=== PATIENT | female | born 1945 | race Caucasian/White ===

== ENCOUNTER 2016-12-30 16:22 | Observation (INO) | payer OTHER ==
[~2016-12-30] VITALS: Ht 152.4 cm; Wt 50.1 kg
[~2016-12-30 16:22] MED LIST: ACETAMINOPHEN500 MG PO; ACID CONTROL150 MG PO; ACID REDUCER 1150 MG PO; ALBUTEROL1 GM MC; ALBUTEROL17 G1 IH; ARICEPT10 MG PO; ARICEPT5 MG PO; ARTHROTEC 501 TABLET PO; ARTIFICIAL TEAR15 M3 BOTH EYES; ASMANEX TW200 MICROG IH; ASMANEX0.24 G1 IH; ATIVAN0.5 MG PO; ATORVASTATIN CA10 MG PO; CIPRO250 MG PO; CLARITIN10 MG PO; COLACE100 MG PO; COMBIVENT200 INHALA IH; COUMADIN,JANTOVE1 MG PO; COUMADIN,JANTOVE2 MG PO; COUMADIN,JANTOVE4 MG PO; COUMADIN2 MG PO; COUMADIN2.5 MG PO; COUMADIN3 MG PO; COUMADIN4 MG PO; Colace PO; DOCUSATE SODIU100 MG PO; DONEPEZIL HCL10 MG PO; DONEPEZIL HCL5 MG PO; DULERA 200 MCG/13 GM IH; DUONEB 2.5-0.5 M3 ML IH; ENDOCET 5-3251 EACH PO; FERROUS SULFAT325 MG PO; FLEET ENEMA-AD118 ML PR; FLONASE16 G1 BOTH NARES; Feosol PO; GABAPENTIN100 MG PO; GENASAL NS; GLIPIZIDE ER2.5 M1 PO; GLIPIZIDE5 MG PO; GLUCOPHAGE500 MG PO; GLUCOTROL XL2.5 MG PO; GLUCOTROL5 MG PO; GLUTOSE 1537.5 GM SL; Glucotrol PO; HYDROCODON-ACE1 EAC7 PO; JANTOVEN4 MG PO; K-Dur PO; KLOR-CON M2020 MEQ PO; LASIX40 MG PO; LEVAQUIN500 MG PO; LIDOCAINE700 MG TD; LIDODERM 5% P1 PATCH TD; LIDODERM 5% P1 PATCH TP; LORAZEPAM0.5 MG PO; LOVENOX80 MG/0.8 SC; Levaquin PO; METFORMIN HCL500 MG PO; METHOCARBAMOL500 MG PO; NEURONTIN100 MG PO; NEURONTIN300 MG PO; NIACIN 500 MG1 EACH PO; NIACIN500 M1 PO; NIASPAN,SLO-NI500 MG PO; NORCO 5/3251 TABLET PO; Niacin PO; OMEPRAZOLE20 MG PO; Ocean Nasal 0.65% BOTH NARES; PANTOPRAZOLE SO40 MG PO; PERCOCET 5/31 TABLET PO; PHILLIPS'400 MG/5 M PO; POTASSIUM CL 225 MEQ PO; PREDNISONE10 MG PO; PRILOSEC20 MG PO; PROAIR HFA8.5 GM IH; PROTONIX40 MG PO; PROVENTIL,2.5 MG/0.5 IH; PROVENTIL,2.5 MG/3 M IH; PYRIDOXINE HCL100 MG PO; PYRIDOXINE,VITA50 MG PO; Percocet 5/325,Endoc PO; Proventil,Ventolin H IH; QUETIAPINE FUM100 MG PO; Robaxin PO; SALINE NASAL SP45 ML BOTH NARES; SENNA PLUS TAB1 EACH PO; SENNA8.6 MG PO; SENOKOT S,PE1 TABLET PO; SEROQUEL100 MG PO; SEROQUEL200 MG PO; SEROQUEL50 MG PO; SERTRALINE HCL25 MG PO; SPIRIVA1 INHALATI IH; SYMBICORT60 INHALAT IH; SYSTANE 0.3-0.1 EACH BOTH EYES; TRAMADOL HCL50 MG PO; TYLENOL REGULA325 MG PO; TYLENOL325 M1 PO; Tylenol Regular Stre PO; VICODIN ES 71 TABLET PO; VICODIN,LORT1 TABLET PO; VITAMIN B-6100 MG PO; VITAMIN B-650 MG PO; VITAMIN D-3 401 EACH PO; VITAMIN D3 1,01 EACH PO; WELLBUTRIN XL150 MG PO; WELLBUTRIN XL300 MG PO; Wellbutrin XL PO; XARELTO15 MG PO; XARELTO20 MG PO; ZITHROMAX Z-PA250 MG PO; ZOCOR20 MG PO; ZOFRAN ODT4 MG PO; ZOLOFT50 MG PO; Zocor PO; predniSONE PO
[2016-12-30 17:19] LABS: BASOPHIL COUNT 0.1 K/uL (0-0.1); EOSINOPHIL (%) 0.9 % (0-5); EOSINOPHIL COUNT 0.1 K/uL (0-0.3); HEMATOCRIT 37.4 % (36.0-46.0); IMMATURE GRANULOCYTE (%) 0.2 % (0.0-0.7); LYMPHOCYTE COUNT 2.3 K/uL (1.0-2.8); MCH 31.5 PG (29.0-34.0); MCHC 33.2 G/DL (30.0-36.0); MCV 94.9 FL (83-99); MEAN PLAT.VOLUME 11.1 uM^3 (9.5-12.4); MONOCYTE (%) 7.7 % (3-12); MONOCYTE COUNT 0.6 K/uL (0-0.8); NEUTROPHIL (%) 62.4 % (45-76); PLATELET COUNT 176 K/uL (156-360); RBC DIS.WIDTH-CV 12.4 % (11.8-14.6); RBC DIS.WIDTH-SD 43.5 % (39-53); RED BLOOD COUNT 3.94 M/uL (3.80-5.20); WHITE BLOOD COUNT 8.1 K/uL (4.1-10.2)
[2016-12-30 17:25] LABS: INTER. NORMALIZED RATIO 1.1; PROTHROMBIN TIME 12.6 SEC (10.2-12.9)
[2016-12-30 17:28] LABS: CHLORIDE 104 mEq/L (99-109); POTASSIUM 3.6 mEq/L (3.7-5.4); PTT 29.8 SEC (25-37); SODIUM 140 mEq/L (136-147)
[2016-12-30 17:30] LABS: GLUCOSE 102 mg/dL (70-99)
[2016-12-30 17:31] LABS: ANION GAP 10 MEQ/L (2-14)
[2016-12-30 17:33] LABS: GFR ESTIMATE (CALCULATED) > 59 mL/min/
[2016-12-30 17:34] LABS: UREA NITROGEN (BUN) 8 mg/dL (9-23)
[2016-12-30 17:40] LABS: TROP-I INTERPRETATION NEGATIVE; TROPONIN-I < 0.01 ng/mL (0.0-0.30)
[2016-12-30 20:02] LABS: SERUM ETHYL ALCOHOL < 10 mg/dL
[2016-12-30 20:14] LABS: TOTAL BILIRUBIN 0.6 mg/dL (0.0-1.0)
[2016-12-30 20:15] LABS: ALKALINE PHOSPHATASE 111 IU/L (3-129)
[2016-12-30 20:18] LABS: DIRECT BILIRUBIN 0.3 mg/dL (0.0-0.3)
[2016-12-30 20:50] VITALS: BP 159/71
[2016-12-30 23:36] VITALS: BP 170/67
[2016-12-31 00:53] LABS: POINT-OF-CARE METER ID UU14162513
[2016-12-31 01:03] LABS: TROP-I INTERPRETATION NEGATIVE; TROPONIN-I < 0.01 ng/mL (0.0-0.30)
[2016-12-31 03:25] VITALS: BP 164/69
[2016-12-31 03:25] LABS: ADD MIUA? NO; BILIRUBIN NEGATIVE; BLOOD NEGATIVE; COLOR YELLOW ((YELLOW)); GLUCOSE (STRIP) NEGATIVE; KETONES NEGATIVE; LEUKOCYTES NEGATIVE; NITRITE NEGATIVE; PROTEIN (STRIP) NEGATIVE; SPECIFIC GRAVITY 1.009 (1.000-1.030); UCUL ADDED? NO; UROBILINOGEN 0.2 MG/DL (0.2-1.0)
[2016-12-31 03:35] LABS: AMPHETAMINES QUANT VALUE 0 NG/ML; BARBITUATES QUANT VALUE 0 NG/ML; BENZODIAZEPINES QUANT VALUE 0 NG/ML; BENZODIAZEPINES, URINE SCREEN Negative (200 ng/mL); MARIJUANA QUANT VALUE 0 NG/ML; OPIATES QUANTITATIVE VALUE 0 NG/ML; PHENCYCLIDINE QUANT VALUE 0 NG/ML
[2016-12-31 05:29] LABS: POINT-OF-CARE METER ID UU14162513
[2016-12-31 05:39] LABS: ALKALINE PHOSPHATASE 90 IU/L (3-129); ANION GAP 7 MEQ/L (2-14); CHLORIDE 110 MEQ/L (99-109); GFR ESTIMATE (CALCULATED) > 59 mL/min/; GLUCOSE 94 mg/dL (70-99); MAGNESIUM 1.8 mg/dl (1.3-2.7); SAMPLE HEMOLYSIS CHECK 0; SAMPLE ICTERIC CHECK 0; SAMPLE LIPEMIA CHECK 0; SODIUM 143 MEQ/L (136-147); TOTAL BILIRUBIN 0.7 MG/DL (0.0-1.0); UREA NITROGEN (BUN) 10 mg/dL (9-23)
[2016-12-31 05:41] LABS: TROP-I INTERPRETATION NEGATIVE; TROPONIN-I < 0.01 ng/mL (0.0-0.30)
[2016-12-31 05:43] LABS: POTASSIUM 4.5 MEQ/L (3.7-5.4)
[2016-12-31 06:54] LABS: Estimated Average Glucose 114 mg/dL (70-123); HEMOGLOBIN A1c (GLYCOHEMOGLOB) 5.6 % HGB (Below 5.7)
[2016-12-31 09:41] VITALS: BP 151/67
[2016-12-31 11:29] VITALS: BP 148/67
[2016-12-31 12:18] LABS: POINT-OF-CARE METER ID UU14162513
== END 2016-12-31 14:00 | disposition home or self-care (01) ==
LOC: EME 16:22 → EDOF 19:14 → ENRESERV 19:19 → 5WEST 20:32 → ENPENDDIS 12-31 → 5WEST 12-31 14:00
PROVIDERS: Emergency Medicine; Internal Medicine; Physician Assistant Medical
DX: R11.2 Nausea with vomiting, unspecified (principal); R19.7 Diarrhea, unspecified; R00.1 Bradycardia, unspecified; R07.89 Other chest pain; R10.9 Unspecified abdominal pain; I25.10 Atherosclerotic heart disease of native coronary artery without angina pectoris; Z86.718 Personal history of other venous thrombosis and embolism; Z86.711 Personal history of pulmonary embolism; G40.909 Epilepsy, unspecified, not intractable, without status epilepticus; Z95.5 Presence of coronary angioplasty implant and graft; I11.0 Hypertensive heart disease with heart failure; I50.9 Heart failure, unspecified; E11.9 Type 2 diabetes mellitus without complications; Z79.01 Long term (current) use of anticoagulants; E78.5 Hyperlipidemia, unspecified; F25.0 Schizoaffective disorder, bipolar type; F03.90 Unspecified dementia, unspecified severity, without behavioral disturbance, psychotic disturbance, mood disturbance, and anxiety; E55.9 Vitamin D deficiency, unspecified; Z85.72 Personal history of non-Hodgkin lymphomas; J44.9 Chronic obstructive pulmonary disease, unspecified; G89.4 Chronic pain syndrome; F17.210 Nicotine dependence, cigarettes, uncomplicated; Z88.2 Allergy status to sulfonamides; Z96.652 Presence of left artificial knee joint; Z90.49 Acquired absence of other specified parts of digestive tract; Z88.0 Allergy status to penicillin; Z88.5 Allergy status to narcotic agent; Z88.1 Allergy status to other antibiotic agents; Z88.6 Allergy status to analgesic agent; Z88.8 Allergy status to other drugs, medicaments and biological substances; Z79.891 Long term (current) use of opiate analgesic
CPT/HCPCS: 71010; 74176; 80048; 80053; 80076; 80306 90; 81003; 82948; 83036; 83735; 84484; 85025; 85610; 85730; 87493; 93005; 99202; 99281; 99285; G0378; G0480; J1650; J3480; J7030; S0028

== ENCOUNTER 2017-01-05 16:42 | Emergency (ER) | payer OTHER ==
[~2017-01-05] VITALS: Ht 152.4 cm; Wt 48.8 kg
[2017-01-05 17:35] LABS: ADD MIUA? YES; BILIRUBIN SMALL; BLOOD NEGATIVE; COLOR AMBER ((YELLOW)); GLUCOSE (STRIP) NEGATIVE; KETONES 20; LEUKOCYTES TRACE; NITRITE NEGATIVE; PROTEIN (STRIP) NEGATIVE; SPECIFIC GRAVITY 1.027 (1.000-1.030)
[2017-01-05 17:56] LABS: HEMATOCRIT 37.6 % (36.0-46.0); MCH 31.4 PG (29.0-34.0); MCHC 33.5 G/DL (30.0-36.0); MCV 93.8 FL (83-99); MEAN PLAT.VOLUME 11.8 uM^3 (9.5-12.4); PLATELET COUNT 177 K/uL (156-360); RBC DIS.WIDTH-CV 12.5 % (11.8-14.6); RBC DIS.WIDTH-SD 43.2 % (39-53); RED BLOOD COUNT 4.01 M/uL (3.80-5.20); WHITE BLOOD COUNT 7.8 K/uL (4.1-10.2)
[2017-01-05 17:59] LABS: BACTERIA RARE /HPF; EPITHELIAL CELLS RARE /HPF; MUCUS TRACE /LPF; RED BLOOD CELLS 0-5 /HPF (0-5); UCUL ADDED? NO; WHITE BLOOD CELLS 0-5 /HPF (0-5)
[2017-01-05 18:07] LABS: CHLORIDE 106 mEq/L (99-109); POTASSIUM 4.1 mEq/L (3.7-5.4); SODIUM 143 mEq/L (136-147)
[2017-01-05 18:09] LABS: GLUCOSE 111 mg/dL (70-99)
[2017-01-05 18:11] LABS: ANION GAP 13 MEQ/L (2-14)
[2017-01-05 18:13] LABS: GFR ESTIMATE (CALCULATED) > 59 mL/min/
[2017-01-05 18:14] LABS: UREA NITROGEN (BUN) 18 mg/dL (9-23)
[2017-01-05 18:47] LABS: INTER. NORMALIZED RATIO 1.2; PROTHROMBIN TIME 13.6 SEC (10.2-12.9)
[2017-01-05 18:56] LABS: TOTAL BILIRUBIN 0.7 mg/dL (0.0-1.0)
[2017-01-05 18:57] LABS: ALKALINE PHOSPHATASE 123 IU/L (3-129)
[2017-01-05 18:59] LABS: DIRECT BILIRUBIN 0.3 mg/dL (0.0-0.3)
[2017-01-05 19:00] LABS: LIPASE 7 U/L (1.0-51.0)
[2017-01-05 19:01] LABS: TROP-I INTERPRETATION NEGATIVE; TROPONIN-I 0.01 ng/mL (0.0-0.30)
[2017-01-05] MEDS ORDERED: KEFLEX500 MG PO (20:17)
[2017-01-05 21:03] VITALS: BP 117/81
== END 2017-01-05 20:19 | disposition home or self-care (01) ==
LOC: EME 16:42
PROVIDERS: Emergency Medicine
DX: N39.0 Urinary tract infection, site not specified (principal); R19.7 Diarrhea, unspecified; R07.9 Chest pain, unspecified; Z86.711 Personal history of pulmonary embolism; Z86.718 Personal history of other venous thrombosis and embolism; Z95.1 Presence of aortocoronary bypass graft; Z87.891 Personal history of nicotine dependence
CPT/HCPCS: 80048; 80076; 81003; 83605; 83690; 84484; 85027; 85610; 85730; 99281; 99284

== ENCOUNTER 2017-06-15 13:40 | Emergency (ER) | payer OTHER ==
[~2017-06-15] VITALS: Ht 152.4 cm; Wt 52.3 kg
[~2017-06-15 13:40] MED LIST changes: +KEFLEX500 MG PO
[2017-06-15 15:22] LABS: BASOPHIL (%) 1.2 % (0-1); BASOPHIL COUNT 0.1 K/uL (0-0.1); EOSINOPHIL (%) 0.8 % (0-5); EOSINOPHIL COUNT 0.1 K/uL (0-0.3); HEMATOCRIT 35.5 % (36.0-46.0); IMMATURE GRANULOCYTE (%) 0.2 % (0.0-0.7); LYMPHOCYTE (%) 33.8 % (15-42); MCHC 33.8 G/DL (30.0-36.0); MCV 94.7 FL (83-99); MONOCYTE (%) 8.4 % (3-12); MONOCYTE COUNT 0.5 K/uL (0-0.8); NEUTROPHIL (%) 55.6 % (45-76); NEUTROPHIL COUNT 3.4 K/uL (1.8-6.4); PLATELET COUNT 179 K/uL (156-360); RBC DIS.WIDTH-CV 12.2 % (11.8-14.6); RBC DIS.WIDTH-SD 42.6 % (39-53); RED BLOOD COUNT 3.75 M/uL (3.80-5.20)
[2017-06-15 15:31] LABS: CHLORIDE 106 mEq/L (99-109); SODIUM 141 mEq/L (136-147)
[2017-06-15 15:33] LABS: GLUCOSE 82 mg/dL (70-99); TOTAL PROTEIN 6.6 g/dL (6.4-8.3)
[2017-06-15 15:35] LABS: TOTAL BILIRUBIN 0.7 mg/dL (0.0-1.0)
[2017-06-15 15:36] LABS: ALKALINE PHOSPHATASE 103 IU/L (3-129)
[2017-06-15 15:37] LABS: CREATININE 0.7 mg/dL (0.6-1.3); GFR ESTIMATE (CALCULATED) > 59 mL/min/
[2017-06-15 15:38] LABS: AST (GOT) 14 IU/L (2-34); UREA NITROGEN (BUN) 12 mg/dL (9-23)
[2017-06-15 15:39] LABS: ALT (GPT) 9 IU/L (3-49)
[2017-06-15 15:40] LABS: CREATINE KINASE 72 IU/L (1-294); TOTAL CK 72 IU/L (1-294)
[2017-06-15 15:45] LABS: CK-MB 2.1 ng/mL (0.0-4.9); CKMB RELATIVE INDEX 2.9 (0.0-3.9)
[2017-06-15] MEDS ORDERED: NORCO 5/3251 TABLET PO (17:34)
[2017-06-15 18:12] VITALS: BP 111/77
== END 2017-06-15 18:13 | disposition home or self-care (01) ==
LOC: EME 13:40
PROVIDERS: Emergency Medicine
DX: M16.11 Unilateral primary osteoarthritis, right hip (principal); I50.9 Heart failure, unspecified; J44.9 Chronic obstructive pulmonary disease, unspecified; I10 Essential (primary) hypertension; E11.9 Type 2 diabetes mellitus without complications; E78.5 Hyperlipidemia, unspecified; K21.9 Gastro-esophageal reflux disease without esophagitis; R56.9 Unspecified convulsions; F03.90 Unspecified dementia, unspecified severity, without behavioral disturbance, psychotic disturbance, mood disturbance, and anxiety; F32.9 Major depressive disorder, single episode, unspecified; F31.9 Bipolar disorder, unspecified; F41.9 Anxiety disorder, unspecified; Z79.01 Long term (current) use of anticoagulants; Z86.718 Personal history of other venous thrombosis and embolism; Z87.891 Personal history of nicotine dependence; Z86.711 Personal history of pulmonary embolism; Z95.1 Presence of aortocoronary bypass graft; Z96.652 Presence of left artificial knee joint; Z90.49 Acquired absence of other specified parts of digestive tract; Z88.5 Allergy status to narcotic agent; Z88.2 Allergy status to sulfonamides; Z88.0 Allergy status to penicillin; Z88.8 Allergy status to other drugs, medicaments and biological substances
CPT/HCPCS: 73502; 73552; 73560; 73564; 80053; 82550; 82553; 85025; 93971; 99281; 99284

== ENCOUNTER 2017-08-30 10:08 | Inpatient (IN) | payer OTHER ==
[~2017-08-30] VITALS: Ht 152.4 cm; Wt 50.0 kg
[2017-08-30 10:51] LABS: BASOPHIL (%) 0.7 % (0-1); BASOPHIL COUNT 0.1 K/uL (0-0.1); EOSINOPHIL (%) 0.5 % (0-5); EOSINOPHIL COUNT 0.1 K/uL (0-0.3); HEMATOCRIT 35.4 % (36.0-46.0); HEMOGLOBIN 11.9 G/DL (11.9-15.5); IMMATURE GRANULOCYTE (%) 0.2 % (0.0-0.7); LYMPHOCYTE (%) 15.7 % (15-42); LYMPHOCYTE COUNT 1.6 K/uL (1.0-2.8); MCH 31.9 PG (29.0-34.0); MCHC 33.6 G/DL (30.0-36.0); MCV 94.9 FL (83-99); MONOCYTE (%) 8.1 % (3-12); MONOCYTE COUNT 0.8 K/uL (0-0.8); NEUTROPHIL (%) 74.8 % (45-76); NEUTROPHIL COUNT 7.6 K/uL (1.8-6.4); PLATELET COUNT 191 K/uL (156-360); RBC DIS.WIDTH-CV 12.6 % (11.8-14.6); RBC DIS.WIDTH-SD 44.1 % (39-53); RED BLOOD COUNT 3.73 M/uL (3.80-5.20); WHITE BLOOD COUNT 10.1 K/uL (4.1-10.2)
[2017-08-30 11:00] LABS: INTER. NORMALIZED RATIO 1.1
[2017-08-30 11:05] LABS: CHLORIDE 105 mEq/L (99-109); POTASSIUM 3.8 mEq/L (3.7-5.4); SODIUM 139 mEq/L (136-147)
[2017-08-30 11:07] LABS: GLUCOSE 106 mg/dL (70-99)
[2017-08-30 11:10] LABS: CREATININE 0.7 mg/dL (0.6-1.3); GFR ESTIMATE (CALCULATED) > 59 mL/min/
[2017-08-30 11:11] LABS: UREA NITROGEN (BUN) 14 mg/dL (9-23)
[2017-08-30] MEDS ORDERED: SENSIPAR30 MG PO (14:42)
[2017-08-30] MEDS ORDERED: SERTRALINE HCL25 MG PO (14:43)
[2017-08-30] MEDS ORDERED: LISINOPRIL10 MG PO (14:43)
[2017-08-30] MEDS ORDERED: SPIRIVA1 INHALATI IH (14:43)
[2017-08-30] MEDS ORDERED: GABAPENTIN400 MG PO (14:43)
[2017-08-30] MEDS ORDERED: METFORMIN HCL500 M1 PO (14:44)
[2017-08-30] MEDS ORDERED: XARELTO20 MG PO (14:45)
[2017-08-30] MEDS ORDERED: ERGOCALCIF50000 UNIT PO (14:46)
[2017-08-30 14:49] LABS: HEMATOCRIT 33.6 % (36.0-46.0); HEMOGLOBIN 11.7 G/DL (11.9-15.5); MCH 32.8 PG (29.0-34.0); MCHC 34.8 G/DL (30.0-36.0); MCV 94.1 FL (83-99); PLATELET COUNT 175 K/uL (156-360); RBC DIS.WIDTH-CV 12.5 % (11.8-14.6); RBC DIS.WIDTH-SD 43.6 % (39-53); RED BLOOD COUNT 3.57 M/uL (3.80-5.20); WHITE BLOOD COUNT 9.4 K/uL (4.1-10.2)
[2017-08-30 16:37] VITALS: BP 124/59
[2017-08-30 18:45] VITALS: BP 130/62
[2017-08-30 19:59] LABS: HEMATOCRIT 32.8 % (36.0-46.0); HEMOGLOBIN 10.9 G/DL (11.9-15.5); MCV 95.3 FL (83-99)
[2017-08-30 23:58] VITALS: BP 132/64
[2017-08-31] VITALS (7 sets, daily range): BP systolic 130–155; BP diastolic 59–75
[2017-08-31 05:29] LABS: HEMATOCRIT 34.2 % (36.0-46.0); HEMOGLOBIN 11.3 G/DL (11.9-15.5); MCH 31.8 PG (29.0-34.0); MCV 96.3 FL (83-99); PLATELET COUNT 148 K/uL (156-360); RBC DIS.WIDTH-CV 12.9 % (11.8-14.6); RBC DIS.WIDTH-SD 45.9 % (39-53); RED BLOOD COUNT 3.55 M/uL (3.80-5.20); WHITE BLOOD COUNT 7.8 K/uL (4.1-10.2)
[2017-08-31 06:01] LABS: CHLORIDE 107 MEQ/L (99-109); CREATININE 0.7 MG/DL (0.6-1.3); GFR ESTIMATE (CALCULATED) > 59 mL/min/; GLUCOSE 91 mg/dL (70-99); POTASSIUM 3.8 MEQ/L (3.7-5.4); SODIUM 142 MEQ/L (136-147); UREA NITROGEN (BUN) 8 mg/dL (9-23)
[2017-09-01 04:25] VITALS: BP 142/67
[2017-09-01 05:36] LABS: HEMATOCRIT 36.5 % (36.0-46.0); HEMOGLOBIN 12.3 G/DL (11.9-15.5); MCV 94.1 FL (83-99)
[2017-09-01 07:31] VITALS: BP 139/69
[2017-09-01 15:14] VITALS: BP 101/54
[2017-09-01 19:15] VITALS: BP 114/80
[2017-09-01 20:18] LABS: APPEARANCE CLEAR ((CLEAR)); BILIRUBIN NEGATIVE; BLOOD SMALL; COLOR YELLOW ((YELLOW)); GLUCOSE (STRIP) NEGATIVE; KETONES 5; LEUKOCYTES NEGATIVE; NITRITE NEGATIVE; PROTEIN (STRIP) NEGATIVE; SPECIFIC GRAVITY 1.012 (1.000-1.030)
[2017-09-01 20:44] LABS: BACTERIA NONE SEEN /HPF; EPITHELIAL CELLS RARE /HPF; MUCUS TRACE /LPF; RED BLOOD CELLS 0-5 /HPF (0-5); UCUL ADDED? NO; WHITE BLOOD CELLS 0-5 /HPF (0-5)
[2017-09-01 23:46] VITALS: BP 114/54
[2017-09-02 03:51] VITALS: BP 110/57
[2017-09-02 06:30] LABS: BASOPHIL (%) 0.4 % (0-1); EOSINOPHIL (%) 0.4 % (0-5); HEMATOCRIT 36.1 % (36.0-46.0); HEMOGLOBIN 12.1 G/DL (11.9-15.5); IMMATURE GRANULOCYTE (%) 0.4 % (0.0-0.7); LYMPHOCYTE (%) 18.8 % (15-42); LYMPHOCYTE COUNT 1.3 K/uL (1.0-2.8); MCH 31.6 PG (29.0-34.0); MCHC 33.5 G/DL (30.0-36.0); MCV 94.3 FL (83-99); MONOCYTE (%) 18.9 % (3-12); MONOCYTE COUNT 1.3 K/uL (0-0.8); NEUTROPHIL (%) 61.1 % (45-76); NEUTROPHIL COUNT 4.2 K/uL (1.8-6.4); PLATELET COUNT 136 K/uL (156-360); RBC DIS.WIDTH-CV 12.7 % (11.8-14.6); RBC DIS.WIDTH-SD 43.8 % (39-53); RED BLOOD COUNT 3.83 M/uL (3.80-5.20); WHITE BLOOD COUNT 6.9 K/uL (4.1-10.2)
[2017-09-02 06:55] LABS: CHLORIDE 102 MEQ/L (99-109); CREATININE 0.8 MG/DL (0.6-1.3); GFR ESTIMATE (CALCULATED) > 59 mL/min/; GLUCOSE 102 mg/dL (70-99); SODIUM 140 MEQ/L (136-147); UREA NITROGEN (BUN) 15 mg/dL (9-23)
[2017-09-02 07:43] VITALS: BP 106/59
[2017-09-02 11:20] VITALS: BP 94/51
[2017-09-02 15:09] VITALS: BP 116/58
[2017-09-02 19:05] VITALS: BP 104/63
[2017-09-02 23:17] VITALS: BP 122/57
[2017-09-03 04:55] VITALS: BP 123/88
[2017-09-03 07:51] VITALS: BP 126/69
[2017-09-03 11:41] VITALS: BP 127/87
[2017-09-03 16:00] VITALS: BP 100/52
[2017-09-03 19:43] VITALS: BP 109/60
[2017-09-04 04:30] VITALS: BP 147/67
[2017-09-04 07:44] VITALS: BP 135/63
[2017-09-04] MEDS ORDERED: LEVAQUIN750 MG PO (11:24)
[2017-09-04 12:48] VITALS: BP 125/61
== END 2017-09-04 14:07 | disposition home health service (06) | DRG 377 ==
LOC: EME 10:08 → EDOF 15:09 → 4SOUTH 15:09 → ENRESERV 15:10 → 4SOUTH 16:19
PROVIDERS: Emergency Medicine; Hospitalist; Internal Medicine; Physician Assistant Medical
PROC: 0DJ08ZZ Inspection of Upper Intestinal Tract, Via Natural or Artificial Opening Endoscopic (ICD-10-PCS; principal; 2017-09-04)
DX: K92.0 Hematemesis (principal); J18.9 Pneumonia, unspecified organism; I11.0 Hypertensive heart disease with heart failure; J43.9 Emphysema, unspecified; I48.91 Unspecified atrial fibrillation; I50.9 Heart failure, unspecified; I25.5 Ischemic cardiomyopathy; G40.909 Epilepsy, unspecified, not intractable, without status epilepticus; F03.90 Unspecified dementia, unspecified severity, without behavioral disturbance, psychotic disturbance, mood disturbance, and anxiety; E11.9 Type 2 diabetes mellitus without complications; I25.10 Atherosclerotic heart disease of native coronary artery without angina pectoris; Z95.5 Presence of coronary angioplasty implant and graft; Z86.718 Personal history of other venous thrombosis and embolism; Z66 Do not resuscitate; Z79.84 Long term (current) use of oral hypoglycemic drugs; Z79.01 Long term (current) use of anticoagulants; E78.5 Hyperlipidemia, unspecified; E55.9 Vitamin D deficiency, unspecified; E21.3 Hyperparathyroidism, unspecified; K59.03 Drug induced constipation; T40.2X5A Adverse effect of other opioids, initial encounter; F31.9 Bipolar disorder, unspecified; Z85.72 Personal history of non-Hodgkin lymphomas; M48.00 Spinal stenosis, site unspecified; F17.210 Nicotine dependence, cigarettes, uncomplicated; K21.9 Gastro-esophageal reflux disease without esophagitis; Z95.1 Presence of aortocoronary bypass graft
CPT/HCPCS: 71045; 74018; 74177; 80048; 81003; 82948; 85014; 85018; 85025; 85027; 85610; 86850; 86900; 86901; 87070; 87205; 87449; 93005; 94640 76; 99202; 99281; 99285; C9113; G0378; G8978 GP CJ; G8979 GP CH; J1815; J1956; J2405; J7030

== ENCOUNTER 2017-10-16 21:59 | Inpatient (IN) | payer OTHER ==
[~2017-10-16] VITALS: Ht 152.4 cm; Wt 49.5 kg
[~2017-10-16 21:59] MED LIST changes: +ERGOCALCIF50000 UNIT PO; +IRON325 M1 PO; +K-DUR20 MEQ PO; +LEVAQUIN750 MG PO; +LISINOPRIL10 MG PO; +METFORMIN HCL500 M1 PO; +SENSIPAR30 MG PO
[2017-10-17] MEDS ORDERED: DUONEB 2.5-0.5 M3 ML AEROSOL (07:35)
[2017-10-17] MEDS ORDERED: NASONEX17 GM BOTH NARES (07:38)
[2017-10-17] MEDS ORDERED: DULERA 100 MCG/13 GM IH (07:38)
[2017-10-17] MEDS ORDERED: HYDROCODON-ACE1 EAC7 PO (07:40)
[2017-10-17 07:41] VITALS: BP 137/65
[2017-10-17 14:01] VITALS: BP 139/60
[2017-10-17 15:36] VITALS: BP 93/54
[2017-10-17 20:11] VITALS: BP 100/51
[2017-10-17 23:31] VITALS: BP 103/57
[2017-10-18 04:49] VITALS: BP 120/58
[2017-10-18 05:27] LABS: HEMATOCRIT 28.8 % (36.0-46.0); MCV 96.6 FL (83-99)
[2017-10-18 05:48] LABS: HEMOGLOBIN 9.3 G/DL (11.9-15.5)
[2017-10-18 05:58] LABS: CHLORIDE 110 MEQ/L (99-109); CREATININE 0.6 MG/DL (0.6-1.3); GFR ESTIMATE (CALCULATED) > 59 mL/min/; GLUCOSE 105 mg/dL (70-99); POTASSIUM 4.2 MEQ/L (3.7-5.4); SODIUM 142 MEQ/L (136-147); UREA NITROGEN (BUN) 14 mg/dL (9-23)
[2017-10-18 08:30] VITALS: BP 107/54
[2017-10-18 11:42] VITALS: BP 165/58
[2017-10-18 15:51] VITALS: BP 130/63
[2017-10-18 20:06] VITALS: BP 115/56
[2017-10-18 23:58] VITALS: BP 124/67
[2017-10-19 03:58] VITALS: BP 148/67
[2017-10-19 05:46] LABS: HEMOGLOBIN 9.3 G/DL (11.9-15.5); MCV 95.2 FL (83-99)
[2017-10-19 07:44] VITALS: BP 131/60
[2017-10-19 12:37] VITALS: BP 114/56
[2017-10-19 16:14] VITALS: BP 126/61
[2017-10-19 23:02] VITALS: BP 132/64
[2017-10-20 08:08] VITALS: BP 134/64
[2017-10-20] MEDS ORDERED: BENADRYL25 MG PO (10:06)
[2017-10-20] MEDS ORDERED: TYLENOL REGULA325 MG PO (10:07)
[2017-10-20] MEDS ORDERED: OXYCODONE HCL5 MG PO (10:08)
[2017-10-20] MEDS ORDERED: SENNA PLUS TAB1 EACH PO (10:08)
== END 2017-10-20 14:00 | DRG 470 ==
LOC: ENRESERV 21:59 → 3WEST 10-17 06:55 → 2SOUTH 10-17 06:55 → 3WEST 10-17 13:50 → 2SOUTH 10-17 15:57 → 3WEST 10-19 07:10 → ENRESERV 10-19 10:55 → 3EAST 10-19 16:05
PROVIDERS: Orthopaedic Surgery
PROC: 0SR904A Replacement of Right Hip Joint with Ceramic on Polyethylene Synthetic Substitute, Uncemented, Open Approach (ICD-10-PCS; principal; 2017-10-17)
DX: M16.11 Unilateral primary osteoarthritis, right hip (principal); D62 Acute posthemorrhagic anemia; I11.0 Hypertensive heart disease with heart failure; I50.9 Heart failure, unspecified; J44.9 Chronic obstructive pulmonary disease, unspecified; H40.9 Unspecified glaucoma; E11.9 Type 2 diabetes mellitus without complications; F31.9 Bipolar disorder, unspecified; G47.39 Other sleep apnea; I25.10 Atherosclerotic heart disease of native coronary artery without angina pectoris
CPT/HCPCS: 71045; 73501; 80048; 82948; 85014; 85018; 94640; 94760; 94799; 97530 GO; 97530 GP; C1713; J0330; J0690; J1170; J2001; J2405; J3010; J7030; J7050; J7120; Q0175

== ENCOUNTER 2017-10-20 16:05 | Emergency (ER) | payer OTHER ==
[~2017-10-20] VITALS: Ht 152.4 cm; Wt 55.7 kg
[~2017-10-20 16:05] MED LIST changes: +BENADRYL25 MG PO; +DULERA 100 MCG/13 GM IH; +DUONEB 2.5-0.5 M3 ML AEROSOL; +NASONEX17 GM BOTH NARES; +OXYCODONE HCL5 MG PO
[2017-10-20 20:45] VITALS: BP 132/53
== END 2017-10-20 20:52 | disposition home or self-care (01) ==
LOC: EME 16:05
DX: R51 Headache (principal); M25.551 Pain in right hip; W18.30XA Fall on same level, unspecified, initial encounter; Z96.641 Presence of right artificial hip joint; I50.9 Heart failure, unspecified; E78.5 Hyperlipidemia, unspecified; Z86.718 Personal history of other venous thrombosis and embolism; Z95.1 Presence of aortocoronary bypass graft; Z79.84 Long term (current) use of oral hypoglycemic drugs; Z88.5 Allergy status to narcotic agent; Z88.2 Allergy status to sulfonamides; Z88.6 Allergy status to analgesic agent; F17.200 Nicotine dependence, unspecified, uncomplicated; Z88.0 Allergy status to penicillin
CPT/HCPCS: 70450; 71046; 72192; 99281; 99284